=== PATIENT | male | born 1965 | race Caucasian/White ===

== ENCOUNTER 2017-06-16 21:13 | Emergency (ER) | payer SELFPAY ==
[2017-06-16 21:21] VITALS: RESP 16; TEMP 97.7
--- NOTE | 2017-06-16 22:07 | EDPHY ---
H & P Stated Complaint: abd pain Time Seen by Provider: 06/16/17 22:05 HPI/ROS: Chief Complaint: Abdominal pain HPI: 52-year-old male began having epigastric abdominal pain about 730 this evening. Patient describes is a sharp pain which rapidly progressed to a 7/10. Described as a dull pain. Is not radiating. It is not move around. There are no aggravating or alleviating factors. Patient states that he has had increased stress lately. He has also had fewer meals in normal due to his stress. Only ate breakfast today. Had several episodes today where he felt his concentration was wondering several times. No headaches. No recent illness. No fevers or chills. Also states that yesterday his urine seemed quite dark and he was not drinking enough fluids. No chest pain or shortness of breath. Has had similar episodes but not severe in the past. Last medical checkup was unremarkable with normal laboratory work. He has not taken any medications for this. He is feeling improved, still having some upper abdominal pain about a 3/10. ROS: 10 point Review of Systems is negative except as noted in the HPI. PMH: Denies Social History: No smoking, rare alcohol, occasional marijuana Family History: non-contributory Physical Exam: Gen: Awake, Alert, No Distress HEENT: Nose: no rhinorrhea Eyes: PERRLA, EOMI Mouth: Moist mucosa Neck: Supple, no JVD Chest: nontender, lungs clear to auscultation Heart: S1, S2 normal, no murmur Abd: Soft, mild epigastric tenderness, no guarding Back: no CVA tenderness, no midline tenderness Ext: no edema, non-tender Skin: no rash Neuro: CN II-XII intact, Sensation grossly intact, Strength 5/5 in bilateral upper and lower extremities - Personal History Current Tetanus/Diphtheria Vaccine: Unsure Current Tetanus Diphtheria and Acellular Pertussis (TDAP): Unsure - Medical/Surgical History Hx Asthma: No Hx Chronic Respiratory Disease: No Hx Diabetes: No Hx Cardiac Disease: No Hx Renal Disease: No Hx Cirrhosis: No Hx Alcoholism: No Hx HIV/AIDS: No Hx Splenectomy or Spleen Trauma: No - Social History Smoking Status: Never smoked Constitutional: Initial Vital Signs Temperature (C) 36.5 C 06/16/17 21:17 Heart Rate 62 03/16/18 21:17 Respiratory Rate 16 06/16/17 21:17 Blood Pressure 106/65 06/16/17 21:17 O2 Sat (%) 99 06/16/17 21:17 O2 Delivery Mode Room Air Allergies/Adverse Reactions: No Known Allergies Allergy (Unverified 06/16/17 21:21) Medical Decision Making ED Course/Re-evaluation: The patient's laboratory evaluations are unremarkable. He is feeling better after GI cocktail. Given his decreased oral intake, increased stressors at think his symptoms are consistent with GERD. He has a soft benign abdomen. Nothing to suggest perforation, cholecystitis, appendicitis, or other surgical intra-abdominal process. He is dehydrated based on the ketones in his urine. I have encouraged increased fluid intake, not skipping meals. I think his episodes of his"zoning out"are likely secondary to hypoglycemic episodes from not eating. Will recommend [id number] antacids and follow up with primary care referral. - Data Points Laboratory Results: Laboratory Results 06/16/17 22:03 06/16/17 22:03 06/16/17 06/16/17 06/16/17 22:35 22:03 22:03 WBC 8.57 10^3/uL 10^3/uL (3.80-9.50) RBC 5.00 10^6/uL 10^6/uL (4.40-6.38) Hgb 16.3 g/dL g/dL (13.7-17.5) Hct 46.7 % % (40.0-51.0) MCV 93.4 fL fL (81.5-99.8) MCH 32.6 pg pg (27.9-34.1) MCHC 34.9 g/dL g/dL (32.4-36.7) RDW 13.5 % % (11.5-15.2) Plt Count 230 10^3/uL 10^3/uL (150-400) MPV 9.2 fL fL (8.7-11.7) Neut % (Auto) 80.8 % H % (39.3-74.2) Lymph % (Auto) 12.3 % L % (15.0-45.0) [place] % (Auto) 5.1 % % (4.5-13.0) Eos % (Auto) 0.5 % L % (0.6-7.6) Baso % (Auto) 0.5 % % (0.3-1.7) Nucleat RBC Rel Count 0.0 % % (0.0-0.2) Absolute Neuts (auto) 6.93 10^3/uL H 10^3/uL (1.70-6.50) Absolute Lymphs (auto) 1.05 10^3/uL 10^3/uL (1.00-3.00) Absolute Monos (auto) 0.44 10^3/uL 10^3/uL (0.30-0.80) Absolute Eos (auto) 0.04 10^3/uL 10^3/uL (0.03-0.40) Absolute Basos (auto) 0.04 10^3/uL 10^3/uL (0.02-0.10) Absolute Nucleated RBC 0.00 10^3/uL 10^3/uL (0-0.01) Immature Gran % 0.8 % % (0.0-1.1) Immature Gran # 0.07 10^3/uL 10^3/uL (0.00-0.10) Sodium 139 mEq/L mEq/L (135-145) Potassium 3.8 mEq/L mEq/L (3.5-5.2) Chloride 101 mEq/L mEq/L (97-110) Carbon Dioxide 27 mEq/l mEq/l (22-31) Anion Gap 11 mEq/L mEq/L (8-16) BUN 18 mg/dL mg/dL (7-23) Creatinine 0.9 mg/dL mg/dL (0.7-1.3) Estimated GFR > 60 Glucose 122 mg/dL H mg/dL (70-100) Calcium 9.4 mg/dL mg/dL (8.5-10.4) Total Bilirubin 1.2 mg/dL mg/dL (0.1-1.4) AST 23 IU/L IU/L (17-59) ALT 41 IU/L IU/L (21-72) Alkaline Phosphatase 50 IU/L IU/L (38-126) Total Protein 7.3 g/dL g/dL (6.3-8.2) Albumin 4.5 g/dL g/dL (3.5-5.0) Lipase 134 IU/L IU/L (23-300) Urine Color YELLOW Urine Appearance CLEAR Urine pH 6.0 (5.0-7.5) Ur Specific [place] 1.016 (1.002-1.030) Urine Protein NEGATIVE (NEGATIVE) Urine Ketones TRACE H (NEGATIVE) Urine Blood NEGATIVE (NEGATIVE) Urine Nitrate NEGATIVE (NEGATIVE) Urine Bilirubin NEGATIVE (NEGATIVE) Urine Urobilinogen NEGATIVE EU EU (0.2-1.0) Ur Leukocyte Esterase NEGATIVE (NEGATIVE) Urine Glucose NEGATIVE (NEGATIVE) Medications Given: Discontinued Medications Al Hydroxide/Mg Hydroxide (Maalox Susp) 30 ml PO ONCE ONE Stop: 06/16/17 22:19 Last Admin: 06/16/17 22:31 Dose: 30 ml Lidocaine (Lidocaine 2% Viscous) 15 ml PO ONCE ONE Stop: 06/16/17 22:19 Last Admin: 06/16/17 22:31 Dose: 15 ml Departure - Departure Disposition: Home, Routine, Self-Care Clinical Impression: GERD (gastroesophageal reflux disease) Condition: Good Instructions: Gastroesophageal Reflux Disease (ED), Diet for Stomach Ulcers and Gastritis (ED) Additional Instructions: You may take famotidine [id number] as needed for reflux symptoms. Please try to avoid skipping meals. Drink at least 8, 8 oz glasses of water a day. Follow up with primary care physician in 3-4 days for further evaluation. Return to the emergency department for increasing abdominal pain, nausea vomiting, fevers, chills, or any other concerns. Referrals: NONE *PRIMARY CARE P,. [Primary Care Provider] - As per Instructions Kesha Hull MD [[facility] [place]] - As per Instructions
[2017-06-16] MEDS ORDERED: MAG HYDROX/AL HYDROX/SIMETH 30 ML UDCUP PO ONE (22:18)
[2017-06-16] MEDS ORDERED: LIDOCAINE 2% VISCOUS 15 ML UDCUP PO ONE (22:18)
[2017-06-16 22:31] LABS: PLATELET COUNT 230 10^3/uL (150-400)
[2017-06-16 23:49] VITALS: BP 117/76; PULSE 57; O2SAT 95
== END 2017-06-16 23:47 | disposition home or self-care (01) ==
DX: K21.9 Gastro-esophageal reflux disease without esophagitis (principal)